=== PATIENT | female | born 1985 | race Caucasian/White ===

== ENCOUNTER 2021-01-01 09:59 | Emergency (ER) | payer BC ==
[~2021-01-01] VITALS: Ht 167.6 cm; Wt 73.5 kg
[2021-01-01] MEDS ORDERED: NAPROXEN250 MG PO (10:28)
== END 2021-01-01 11:08 | disposition home or self-care (01) ==
LOC: ED 09:59
DX: S49.92XA Unspecified injury of left shoulder and upper arm, initial encounter (principal); F17.200 Nicotine dependence, unspecified, uncomplicated; W18.40XA Slipping, tripping and stumbling without falling, unspecified, initial encounter; Y93.89 Activity, other specified; Y92.89 Other specified places as the place of occurrence of the external cause; Y99.8 Other external cause status

== ENCOUNTER 2021-05-20 15:06 | Emergency (ER) | payer BC ==
[~2021-05-20] VITALS: Ht 170.1 cm; Wt 74.8 kg
[~2021-05-20 15:06] MED LIST: NAPROXEN250 MG PO
[2021-05-20 15:29] LABS: BASO % 0.3 % (0.0-1.0); EOS # 0.3 10*3/uL (0.0-0.4); EOS % 3.9 % (1.0-4.0); HEMATOCRIT 38.7 % (37.0-47.0); LYMPH # 2.2 10*3/uL (1.3-4.4); LYMPH % 31.7 % (27.0-41.0); MEAN CELL VOLUME 66.7 fl (81.0-99.0); MEAN CORPUSCULAR HGB 21.2 pg (27.0-31.0); MEAN CORPUSCULAR HGB CONC 31.8 g/dl (33.0-37.0); MONO # 0.3 10*3/uL (0.1-1.0); MONO % 4.8 % (3.0-9.0); NEUT # 4.1 10*3/uL (2.3-7.9); PLATELET COUNT AUTOMATED 178 10*3/uL (130-400); RED CELL DISTRI WIDTH 23.1 % (0-14.5); WHITE BLOOD COUNT 6.9 10*3/uL (4.8-10.8)
[2021-05-20 15:47] LABS: ALBUMIN 3.9 gm/dl (3.1-4.5); ALKALINE PHOSPHATASE 104 U/L (45-117); BUN 8 mg/dl (7-24); CHLORIDE 109 mmol/L (98-107); CREATININE 0.83 mg/dL (0.55-1.02); POTASSIUM 3.9 mmol/L (3.5-5.1); SGOT/AST 27 IU/L (3-35); SGPT/ALT 38 U/L (12-78); SODIUM 138 mmol/L (136-145); TOTAL PROTEIN 7.7 gm/dL (6.4-8.2)
[2021-05-20] MEDS ORDERED: ZITHROMAX250 MG PO (19:46)
== END 2021-05-20 20:04 | disposition home or self-care (01) ==
LOC: ED 15:06
PROVIDERS: Physician Assistant
DX: J18.9 Pneumonia, unspecified organism (principal)

== ENCOUNTER 2022-03-21 21:02 | Emergency (ER) | payer BC ==
[~2022-03-21] VITALS: Ht 170.1 cm; Wt 78.0 kg
[~2022-03-21 21:02] MED LIST changes: +ZITHROMAX250 MG PO
[2022-03-21] MEDS ORDERED: PREDNISONE20 M1 PO (21:41)
[2022-03-21] MEDS ORDERED: ZITHROMAX250 MG PO (21:41)
== END 2022-03-21 21:40 | disposition home or self-care (01) ==
LOC: ED 21:02
DX: J40 Bronchitis, not specified as acute or chronic (principal)

== ENCOUNTER 2024-01-20 22:31 | Emergency (ER) | payer OTHER ==
[~2024-01-20 22:31] MED LIST changes: +PREDNISONE20 M1 PO
== END 2024-01-21 01:02 | disposition home or self-care (01) ==
LOC: ED 22:31
DX: B34.9 Viral infection, unspecified (principal); Z20.822 Contact with and (suspected) exposure to COVID-19